=== PATIENT | female | born 1975 | race Caucasian/White ===

== ENCOUNTER 2022-08-05 05:27 | Inpatient (IN) | payer OTHER ==
[2022-08-05] MEDS ORDERED: Acetaminophen 500 MG Tab PO ONE (05:45)
[2022-08-05] MEDS ORDERED: Scopolamine 1.5 MG Transdermal Patch TOP ONE (05:45)
[2022-08-05] MEDS: Celecoxib 200 MG Cap PO SCH ×2 (06:01→11:25)
[2022-08-05] MEDS ORDERED: Dextrose 5%-Lactated Ringers 1,000 ML IV SCH (06:30)
[2022-08-05] MEDS ORDERED: cefOXitin 2 GM Vial ONE (06:48)
[2022-08-05] MEDS ORDERED: Lidocaine 1% with EPINEPHrine 1:100,000 50 ML MDV ONE (06:48)
[2022-08-05] MEDS ORDERED: Bupivacaine 0.5% 50 ML MDV ONE (06:48)
[2022-08-05] MEDS ORDERED: Neostigmine Methylsulfate 1 MG/ML 5 ML Syringe ONE (07:13)
[2022-08-05] MEDS ORDERED: fentaNYL 250 MCG/5 ML SDV ONE ×2 (07:13→08:10)
[2022-08-05] MEDS ORDERED: Rocuronium 50 MG/5 ML Vial ONE (07:13)
[2022-08-05] MEDS ORDERED: Dexamethasone 4 MG/ML SDV ONE (07:13)
[2022-08-05] MEDS ORDERED: Glycopyrrolate 0.2 MG/ML 5 ML MDV ONE (07:13)
[2022-08-05] MEDS ORDERED: Propofol 200 MG/20 ML SDV ONE (07:13)
[2022-08-05] MEDS ORDERED: Ondansetron 4 MG/2 ML SDV ONE (07:13)
[2022-08-05] MEDS ORDERED: Succinylcholine 200 MG/10 ML MDV ONE (07:13)
[2022-08-05] MEDS ORDERED: cefOXitin 2 GM in Sodium Chloride 0.9% 50 ML IV ONE (07:45)
[2022-08-05] MEDS ORDERED: Ketamine 17 MG in Sodium Chloride 0.9% 19.83 ML IV SCH (08:00)
[2022-08-05] MEDS ORDERED: Ketamine 500 MG/5 ML MDV IV SCH (08:00)
[2022-08-05] MEDS ORDERED: Labetalol 20 MG/4 ML Syringe ONE (08:25)
[2022-08-05] MEDS ORDERED: hydrALAZINE 20 MG/ML SDV ONE (08:48)
[2022-08-05] MEDS ORDERED: HYDROmorphone 1 MG/ML Syringe IV PRN (12:00)
[2022-08-05] MEDS ORDERED: hydrOXYzine HCL 100 MG/2 ML SDV IM PRN (12:00)
[2022-08-05] MEDS ORDERED: diphenhydrAMINE 50 MG/ML SDV IVPUSH PRN (12:00)
[2022-08-05] MEDS ORDERED: oxyCODONE 5 MG Tab PO PRN (12:00)
[2022-08-05] MEDS ORDERED: HYDROmorphone 0.5 MG/0.5 ML Syringe IVPUSH PRN (12:00)
[2022-08-05] MEDS ORDERED: Labetalol 20 MG/4 ML Syringe IVPUSH PRN (12:00)
[2022-08-05] MEDS ORDERED: Ondansetron 4 MG/2 ML SDV IVPUSH PRN (12:00)
[2022-08-05] MEDS ORDERED: Acetaminophen 500 MG Tab PO PRN (12:00)
[2022-08-05] MEDS ORDERED: Metoclopramide 10 MG/2 ML SDV IVPUSH PRN (12:00)
[2022-08-05] MEDS: Lisinopril 20 MG Tab PO SCH (13:03)
[2022-08-05] MEDS: Acetaminophen 500 MG Tab PO SCH ×2 (13:03→22:32)
[2022-08-05] MEDS: Dextrose 5%-Lactated Ringers 1,000 ML IV SCH ×2 (13:12→21:56)
[2022-08-05] MEDS ORDERED: Pantoprazole 40 MG Vial IVPUSH SCH (14:00)
[2022-08-05] MEDS: cefOXitin 2 GM in Sodium Chloride 0.9% 50 ML IV SCH ×2 (14:12→20:33)
[2022-08-05] MEDS: MVI, Adult with Vitamin K 10 ML, Thiamine 200 MG, Zinc/Copper/Manganese/Selenium 1 ML i... IV SCH ×4 (15:31)
[2022-08-05] MEDS: Heparin Sodium 5,000 Units/ML Vial SUBCUT SCH (17:20)
[2022-08-05] MEDS: Cyclobenzaprine 10 MG Tab PO PRN (22:36)
[2022-08-06] MEDS ORDERED: Iopamidol 612 MG/ML 30 ML SDV PO STA (02:48)
[2022-08-06] MEDS: cefOXitin 2 GM in Sodium Chloride 0.9% 50 ML IV SCH ×4 (02:50→20:09)
[2022-08-06] MEDS: Dextrose 5%-Lactated Ringers 1,000 ML IV SCH ×2 (04:18→12:52)
[2022-08-06] MEDS: Heparin Sodium 5,000 Units/ML Vial SUBCUT SCH ×2 (05:41→17:49)
[2022-08-06] MEDS: Acetaminophen 500 MG Tab PO SCH ×3 (05:41→21:37)
[2022-08-06] MEDS: Cyclobenzaprine 10 MG Tab PO PRN (06:49)
[2022-08-06] MEDS ORDERED: hydrOXYzine HCl 25 MG Tab PO PRN (07:50)
[2022-08-06] MEDS: ESCITALOPRAM PO SCH ×2 (08:53)
[2022-08-06] MEDS: Lisinopril 20 MG Tab PO SCH (08:53)
[2022-08-06] MEDS: buPROPion 150 MG Tab.ER PO SCH (08:54)
[2022-08-06] MEDS: SCOPOLAMINE PATCH CHECK TOP SCH (08:54)
[2022-08-06] MEDS: Celecoxib 200 MG Cap PO SCH ×2 (08:54→21:37)
[2022-08-06] MEDS: traMADol 50 MG Tab PO PRN ×2 (09:32→20:08)
[2022-08-06] MEDS: Pantoprazole 40 MG Tab.CR PO SCH (10:55)
[2022-08-06] MEDS: MVI, Adult with Vitamin K 10 ML, Thiamine 200 MG, Zinc/Copper/Manganese/Selenium 1 ML i... IV SCH ×4 (15:06)
[2022-08-06] MEDS: Ondansetron 4 MG Tab.DIS PO PRN (20:23)
[2022-08-07] MEDS: Dextrose 5%-Lactated Ringers 1,000 ML IV SCH (01:49)
[2022-08-07] MEDS: Acetaminophen 500 MG Tab PO SCH (05:12)
[2022-08-07] MEDS: Heparin Sodium 5,000 Units/ML Vial SUBCUT SCH (05:12)
[2022-08-07] MEDS: Pantoprazole 40 MG Tab.CR PO SCH (07:28)
[2022-08-07] MEDS ORDERED: Magnesium Hydroxide 400 MG/5 ML Susp 30 ML Cup PO ONE (09:00)
[2022-08-07] MEDS ORDERED: Cyanocobalamin (Vitamin B12) 1,000 MCG/ML SDV IM ONE (09:00)
[2022-08-07] MEDS: Lisinopril 20 MG Tab PO SCH (09:11)
[2022-08-07] MEDS: Celecoxib 200 MG Cap PO SCH (09:12)
[2022-08-07] MEDS: SCOPOLAMINE PATCH CHECK TOP SCH (09:12)
[2022-08-07] MEDS: ESCITALOPRAM PO SCH ×2 (09:12)
[2022-08-07] MEDS: buPROPion 150 MG Tab.ER PO SCH (09:12)
[2022-08-07] MEDS: Ondansetron 4 MG Tab.DIS PO PRN (09:41)
== END 2022-08-07 09:41 | disposition home or self-care (01) | DRG 621 ==
LOC: JP.SDS 05:27 → JP.MS 10:20
PROVIDERS: ADMIT Surgery; ATTEND Surgery
PROC: 0DB64Z3 Excision of Stomach, Percutaneous Endoscopic Approach, Vertical (ICD-10-PCS; principal; 2022-08-05)
PROC: 0BQT4ZZ Repair Diaphragm, Percutaneous Endoscopic Approach (ICD-10-PCS; 2022-08-05)
PROC: 0FB24ZX Excision of Left Lobe Liver, Percutaneous Endoscopic Approach, Diagnostic (ICD-10-PCS; 2022-08-05)
PROC: 0D1B4Z4 Bypass Ileum to Cutaneous, Percutaneous Endoscopic Approach (ICD-10-PCS; 2022-08-05)
DX: E66.01 Morbid (severe) obesity due to excess calories (principal); R16.0 Hepatomegaly, not elsewhere classified; K44.9 Diaphragmatic hernia without obstruction or gangrene; I10 Essential (primary) hypertension; F41.1 Generalized anxiety disorder; E28.2 Polycystic ovarian syndrome; E78.2 Mixed hyperlipidemia; M17.11 Unilateral primary osteoarthritis, right knee; F32.9 Major depressive disorder, single episode, unspecified; Z98.890 Other specified postprocedural states; Z68.43 Body mass index [BMI] 50.0-59.9, adult
CPT/HCPCS: 36415; 74240; 74240-26; 82947; 84703; 85027; 86850; 86900; 86901; 93005; A9270-GY; C9113; J0131; J0171; J0330; J0360; J0694; J1100; J1644; J2405; J2704; J2710; J2795; J3010; J3410; J3411; J3420; J3490; J7121; Q0162; Q9967